=== PATIENT | female | born 1970 | race African-American/Black ===

== ENCOUNTER 2018-12-26 20:02 | Emergency (ER) | payer MEDICAID ==
[~2018-12-26] VITALS: Ht 160 cm; Wt 134.0 kg
[~2018-12-26 20:02] MED LIST: ALBUTEROL; CLARITIN
[2018-12-27 00:40] VITALS: BP 151/81
== END 2018-12-27 00:50 | disposition home or self-care (01) ==
LOC: ER 20:02
DX: T85.628A Displacement of other specified internal prosthetic devices, implants and grafts, initial encounter (principal); I10 Essential (primary) hypertension; F12.10 Cannabis abuse, uncomplicated; J44.9 Chronic obstructive pulmonary disease, unspecified; Z86.718 Personal history of other venous thrombosis and embolism; Z90.710 Acquired absence of both cervix and uterus; Z98.890 Other specified postprocedural states
CPT/HCPCS: 71045; 99283

== ENCOUNTER → 2019-10-13 | Outpatient (CLI) | payer MEDICARE, MEDICAID | END | disposition home or self-care (01) | LOC: RAD 16:16 | PROVIDERS: ATTEND Nurse Practitioner Family | DX: R05 Cough (principal) | CPT/HCPCS: 71045 ==

== ENCOUNTER 2021-10-04 13:32 | Emergency (ER) | payer MEDICARE, MEDICAID ==
[~2021-10-04] VITALS: Ht 160 cm; Wt 137.0 kg
[2021-10-04] MEDS ORDERED: SELE118S2 TP (14:52)
[2021-10-04] MEDS ORDERED: GRIS500T6 MT ×2 (14:52→15:55)
[2021-10-04 15:19] VITALS: BP 125/64
[2021-10-04] MEDS ORDERED: NIZOS TP (15:56)
== END 2021-10-04 15:20 | disposition home or self-care (01) ==
LOC: ER 14:41
DX: B35.0 Tinea barbae and tinea capitis (principal)
CPT/HCPCS: 99281

== ENCOUNTER 2022-07-17 15:31 | Inpatient (IN) | payer MEDICARE, MEDICAID ==
[~2022-07-17] VITALS: Ht 160 cm; Wt 130.5 kg
[~2022-07-17 15:31] MED LIST changes: +GRIS500T6 MT; +NIZOS TP; +SELE118S2 TP
[2022-07-17] MEDS ORDERED: ENOXAPARIN 80MG/0.8ML SYR SUBCUT ONE (16:15)
[2022-07-17 16:46] LABS: BASOPHILS % 0.3 % (0.0-2.0); EOSINOPHILS % 1.1 % (0.0-5.0); HEMATOCRIT. 29.2 % (36.0-48.0); HEMOGLOBIN. 9.1 g/dL (12.0-16.0); LYMPHOCYTES % 11.2 % (20.0-50.0); MEAN CORPUSCULAR HEMOGLOBIN 23.9 pg (28.0-32.0); MEAN CORPUSCULAR VOLUME 76.8 fL (81.0-99.0); MEAN PLATELET VOLUME 8.3 fl (7.4-10.4); MONOCYTES % 7.1 % (2.0-8.0); NEUTROPHILS % 80.3 % (40.0-76.0); PLATELET 366 x1000/uL (130-400); RED CELL DISTRIBUTION WIDTH 20.9 % (11.6-14.6)
[2022-07-17 16:55] LABS: CHLORIDE 103 mEq/L (98-107)
[2022-07-17 16:56] LABS: PARTIAL THROMBOPLASTIN TIME 30.5 sec (23.4-31.0)
[2022-07-17] MEDS ORDERED: ACETAMINOPHEN 650MG/20.3ML UDC PO ONE (18:45)
[2022-07-17] MEDS ORDERED: IOHEXOL-350 100 ML BOTTLE ONE (19:25)
[2022-07-17] MEDS ORDERED: ONDANSETRON HCL 4MG/2ML INJ IV PRN (19:45)
[2022-07-17] MEDS ORDERED: DIPHENHYDRAMINE 50MG/ML VIAL IV PRN (19:45)
[2022-07-17] MEDS ORDERED: MORPHINE SULFATE 2 MG/ML CPJ (NOT FOR IM USE) IV PRN (19:45)
[2022-07-17] MEDS ORDERED: IPRATROPIUM/ALBUTEROL 0.5-3(2.5)MG/3ML NEB HHN PRN (19:45)
[2022-07-17] MEDS: SODIUM CHLORIDE 0.9% 1,000 ML IV SCH (20:11)
[2022-07-17] MEDS ORDERED: AZITHROMYCIN 500 MG in DEXT 5% WATER 250 ML IV SCH (20:30)
[2022-07-17] MEDS ORDERED: CEFTRIAXONE 1 G PREMIX 50 ML IV SCH (22:00)
[2022-07-17] MEDS: CLONIDINE 0.1MG TABLET PO PRN (22:14)
[2022-07-18] MEDS: SODIUM CHLORIDE 0.9% 1,000 ML IV SCH (08:15)
[2022-07-18] MEDS: CLONIDINE 0.1MG TABLET PO PRN ×2 (10:35→17:02)
[2022-07-18] MEDS ORDERED: NALOXONE HCL 0.4MG/ML VIAL IV PRN (11:15)
[2022-07-18 12:00] VITALS: BP 158/89
[2022-07-18 12:55] VITALS: BP 158/89
[2022-07-18] MEDS ORDERED: AZITHROMYCIN 500 MG in DEXT 5% WATER 250 ML IV SCH ×2 (14:00→21:00)
[2022-07-18 14:10] LABS: BG BASE EXCESS 7.1 mmol/L (-2.0-2.0); BG CARBOXYHEMOGLOBIN 0.4 % (0.5-1.5); BG DEOXYHEMOGLOBIN 6.1 % (0.0-5.0); BG HCO3 ACT 35.2 mmol/L (22.0-26.0); BG METHEMOGLOBIN 0.2 % (0.0-1.5); BG OXYGEN SATURATION 93.9 % (92.0-98.5); BG OXYHEMOGLOBIN 93.3 % (94.0-97.0); BG PCO2 72.5 mmHg (35.0-45.0); BG PH 7.304 (7.350-7.450); BG PO2 75.1 mmHg (75.0-100.0); BG SAMPLE SITE RIGHT RADIAL; BG TOTAL HEMOGLOBIN 10.2 g/dL (12.0-18.0); BG VENT MODE NASAL CANNULA
[2022-07-18] MEDS: CEFTRIAXONE 1,000 MG in DEXTROSE 5% WATER 50 ML IV SCH (15:45)
[2022-07-18 16:00] VITALS: BP 160/100
[2022-07-18 16:52] LABS: CHLORIDE 102 mEq/L (98-107)
[2022-07-18 17:00] LABS: TOTAL IRON BINDING CAPACITY 260 ug/dL (250-450)
[2022-07-18] MEDS: AZITHROMYCIN 500 MG in DEXT 5% WATER 250 ML IV SCH (17:02)
[2022-07-18] MEDS: METHYLPREDNISOLONE SOD SUCC 40 MG/ML VIAL IV SCH (17:07)
[2022-07-18 17:22] LABS: BASOPHILS % 0.2 % (0.0-2.0); EOSINOPHILS % 0.8 % (0.0-5.0); HEMATOCRIT. 30.8 % (36.0-48.0); HEMOGLOBIN. 9.3 g/dL (12.0-16.0); LYMPHOCYTES % 11.3 % (20.0-50.0); MEAN CORPUSCULAR HEMOGLOBIN 23.5 pg (28.0-32.0); MEAN CORPUSCULAR VOLUME 77.6 fL (81.0-99.0); MEAN PLATELET VOLUME 8.8 fl (7.4-10.4); MONOCYTES % 5.9 % (2.0-8.0); NEUTROPHILS % 81.8 % (40.0-76.0); PLATELET 339 x1000/uL (130-400); RED BLOOD CELL COUNT 3.97 mill/uL (4.2-5.4); RED CELL DISTRIBUTION WIDTH 21.8 % (11.6-14.6)
[2022-07-18 18:59] VITALS: BP 151/104
[2022-07-18] MEDS: AMLODIPINE 5MG TABLET PO SCH (18:59)
[2022-07-18 20:00] VITALS: BP 149/85
[2022-07-18] MEDS: IPRATROPIUM/ALBUTEROL 0.5-3(2.5)MG/3ML NEB HHN SCH (21:58)
[2022-07-18] MEDS ORDERED: CEFTRIAXONE 1,000 MG in DEXTROSE 5% WATER 50 ML IV SCH (22:00)
[2022-07-19] VITALS: BP 137/91
[2022-07-19] MEDS: METHYLPREDNISOLONE SOD SUCC 40 MG/ML VIAL IV SCH ×3 (01:48→17:30)
[2022-07-19] MEDS: IPRATROPIUM/ALBUTEROL 0.5-3(2.5)MG/3ML NEB HHN SCH ×5 (02:55→20:42)
[2022-07-19 04:00] VITALS: BP 159/83
[2022-07-19 08:00] VITALS: BP 162/96
[2022-07-19] MEDS: AMLODIPINE 5MG TABLET PO SCH (09:03)
[2022-07-19] MEDS: SODIUM CHLORIDE 0.9% 1,000 ML IV SCH (09:07)
[2022-07-19] MEDS: CLONIDINE 0.1MG TABLET PO PRN (09:17)
[2022-07-19] MEDS: ACETAMINOPHEN 325MG TABLET PO PRN ×2 (09:17→20:01)
[2022-07-19 12:00] VITALS: BP 140/91
[2022-07-19] MEDS: CEFTRIAXONE 1,000 MG in DEXTROSE 5% WATER 50 ML IV SCH (12:06)
[2022-07-19] MEDS: AZITHROMYCIN 500 MG in DEXT 5% WATER 250 ML IV SCH (14:33)
[2022-07-19 16:00] VITALS: BP 151/100
[2022-07-19 20:00] VITALS: BP 148/80
[2022-07-20] VITALS: BP 137/84
[2022-07-20] MEDS: IPRATROPIUM/ALBUTEROL 0.5-3(2.5)MG/3ML NEB HHN SCH ×6 (00:10→22:21)
[2022-07-20] MEDS: METHYLPREDNISOLONE SOD SUCC 40 MG/ML VIAL IV SCH ×3 (00:24→18:00)
[2022-07-20] MEDS: SODIUM CHLORIDE 0.9% 1,000 ML IV SCH ×2 (00:25→10:07)
[2022-07-20 04:00] VITALS: BP 140/97
[2022-07-20 07:37] LABS: HEMATOCRIT. 32.2 % (36.0-48.0); HEMOGLOBIN. 9.9 g/dL (12.0-16.0); MEAN CORPUSCULAR HEMOGLOBIN 23.5 pg (28.0-32.0); MEAN CORPUSCULAR VOLUME 76.7 fL (81.0-99.0); MEAN PLATELET VOLUME 8.9 fl (7.4-10.4); PLATELET 403 x1000/uL (130-400); RED BLOOD CELL COUNT 4.19 mill/uL (4.2-5.4); RED CELL DISTRIBUTION WIDTH 21.1 % (11.6-14.6)
[2022-07-20 08:01] LABS: CHLORIDE 98 mEq/L (98-107)
[2022-07-20 08:30] VITALS: BP 165/100
[2022-07-20] MEDS: AMLODIPINE 5MG TABLET PO SCH (09:54)
[2022-07-20] MEDS: ACETAMINOPHEN 325MG TABLET PO PRN (10:41)
[2022-07-20] MEDS: GUAIFENESIN 600MG ER TABLET PO SCH ×2 (11:40→21:16)
[2022-07-20 12:00] VITALS: BP 157/94
[2022-07-20] MEDS: CEFTRIAXONE 1,000 MG in DEXTROSE 5% WATER 50 ML IV SCH (12:49)
[2022-07-20] MEDS: AZITHROMYCIN 500 MG in DEXT 5% WATER 250 ML IV SCH (14:23)
[2022-07-20 14:52] LABS: NUCLEATED RED BLOOD CELLS 1 /100 WBC; PLATELET ESTIMATE NORMAL
[2022-07-20 16:00] VITALS: BP 129/94
[2022-07-20] MEDS: IRON SUCROSE COMPLEX 100 MG/5 ML ML IV SCH (18:27)
[2022-07-20 20:00] VITALS: BP 121/73
[2022-07-21] VITALS: BP 118/78
[2022-07-21] MEDS: METHYLPREDNISOLONE SOD SUCC 40 MG/ML VIAL IV SCH ×4 (01:13→17:16)
[2022-07-21] MEDS: BENZONATATE 100MG CAPSULE PO PRN (01:15)
[2022-07-21] MEDS: SODIUM CHLORIDE 0.9% 1,000 ML IV SCH ×2 (01:15→11:58)
[2022-07-21] MEDS: IPRATROPIUM/ALBUTEROL 0.5-3(2.5)MG/3ML NEB HHN SCH ×6 (02:39→21:57)
[2022-07-21 04:00] VITALS: BP 158/92
[2022-07-21 08:00] VITALS: BP 168/100
[2022-07-21 08:03] LABS: BG BASE EXCESS 11.9 mmol/L (-2.0-2.0); BG CARBOXYHEMOGLOBIN 0.6 % (0.5-1.5); BG DEOXYHEMOGLOBIN 3.4 % (0.0-5.0); BG HCO3 ACT 39.5 mmol/L (22.0-26.0); BG METHEMOGLOBIN 0.3 % (0.0-1.5); BG OXYGEN SATURATION 96.6 % (92.0-98.5); BG OXYHEMOGLOBIN 95.7 % (94.0-97.0); BG PCO2 70.3 mmHg (35.0-45.0); BG PH 7.368 (7.350-7.450); BG PO2 88.9 mmHg (75.0-100.0); BG SAMPLE SITE RIGHT RADIAL; BG TOTAL HEMOGLOBIN 10.8 g/dL (12.0-18.0); BG VENT MODE NASAL CANNULA
[2022-07-21] MEDS: ACETAMINOPHEN 325MG TABLET PO PRN (08:38)
[2022-07-21] MEDS: AMLODIPINE 5MG TABLET PO SCH (08:39)
[2022-07-21] MEDS: GUAIFENESIN 600MG ER TABLET PO SCH ×2 (08:39→21:18)
[2022-07-21 12:00] VITALS: BP 158/68
[2022-07-21] MEDS: CEFTRIAXONE 1,000 MG in DEXTROSE 5% WATER 50 ML IV SCH (13:07)
[2022-07-21] MEDS: AZITHROMYCIN 500 MG in DEXT 5% WATER 250 ML IV SCH (13:07)
[2022-07-21 16:00] VITALS: BP 146/97
[2022-07-21] MEDS: IRON SUCROSE COMPLEX 100 MG/5 ML ML IV SCH ×3 (17:16→19:21)
[2022-07-21 20:00] VITALS: BP 125/76
[2022-07-22] VITALS (7 sets, daily range): BP systolic 122–157; BP diastolic 81–106
[2022-07-22] MEDS: METHYLPREDNISOLONE SOD SUCC 40 MG/ML VIAL IV SCH ×3 (00:21→17:21)
[2022-07-22] MEDS: SODIUM CHLORIDE 0.9% 1,000 ML IV SCH ×2 (00:21→14:25)
[2022-07-22] MEDS: IPRATROPIUM/ALBUTEROL 0.5-3(2.5)MG/3ML NEB HHN SCH ×6 (00:22→21:03)
[2022-07-22] MEDS: CLONIDINE 0.1MG TABLET PO PRN (00:29)
[2022-07-22] MEDS: BENZONATATE 100MG CAPSULE PO PRN (00:31)
[2022-07-22] MEDS: ACETAMINOPHEN 325MG TABLET PO PRN ×2 (01:29→09:09)
[2022-07-22] MEDS: AMLODIPINE 5MG TABLET PO SCH (09:09)
[2022-07-22] MEDS: GUAIFENESIN 600MG ER TABLET PO SCH ×2 (09:09→21:42)
[2022-07-22] MEDS: CEFTRIAXONE 1,000 MG in DEXTROSE 5% WATER 50 ML IV SCH (14:25)
[2022-07-22] MEDS: BACLOFEN 10MG TABLET PO SCH (23:35)
[2022-07-23] VITALS (7 sets, daily range): BP systolic 136–157; BP diastolic 73–109
[2022-07-23] MEDS: IPRATROPIUM/ALBUTEROL 0.5-3(2.5)MG/3ML NEB HHN SCH ×6 (00:36→20:48)
[2022-07-23] MEDS: METHYLPREDNISOLONE SOD SUCC 40 MG/ML VIAL IV SCH ×3 (01:27→17:57)
[2022-07-23] MEDS: SODIUM CHLORIDE 0.9% 1,000 ML IV SCH ×2 (01:32→12:57)
[2022-07-23] MEDS: BACLOFEN 10MG TABLET PO SCH ×3 (06:30→21:55)
[2022-07-23 07:21] LABS: HEMATOCRIT. 32.8 % (36.0-48.0); MEAN CORPUSCULAR HEMOGLOBIN 23.5 pg (28.0-32.0); MEAN CORPUSCULAR VOLUME 77.2 fL (81.0-99.0); MEAN PLATELET VOLUME 8.9 fl (7.4-10.4); PLATELET 345 x1000/uL (130-400); RED BLOOD CELL COUNT 4.25 mill/uL (4.2-5.4); RED CELL DISTRIBUTION WIDTH 20.8 % (11.6-14.6)
[2022-07-23 07:37] LABS: CHLORIDE 98 mEq/L (98-107)
[2022-07-23] MEDS: AMLODIPINE 5MG TABLET PO SCH (09:36)
[2022-07-23] MEDS: GUAIFENESIN 600MG ER TABLET PO SCH ×2 (09:36→21:55)
[2022-07-23 11:15] LABS: BG BASE EXCESS 15.3 mmol/L (-2.0-2.0); BG CARBOXYHEMOGLOBIN 0.6 % (0.5-1.5); BG DEOXYHEMOGLOBIN 11.3 % (0.0-5.0); BG FRACTION INSPIRED OXYGEN 21; BG HCO3 ACT 41.9 mmol/L (22.0-26.0); BG METHEMOGLOBIN 0.2 % (0.0-1.5); BG OXYGEN SATURATION 88.6 % (92.0-98.5); BG OXYHEMOGLOBIN 87.9 % (94.0-97.0); BG PCO2 62.2 mmHg (35.0-45.0); BG PH 7.446 (7.350-7.450); BG PO2 53.1 mmHg (75.0-100.0); BG SAMPLE SITE RIGHT RADIAL; BG TOTAL HEMOGLOBIN 11.1 g/dL (12.0-18.0); BG VENT MODE ROOM AIR
[2022-07-23] MEDS: CEFTRIAXONE 1,000 MG in DEXTROSE 5% WATER 50 ML IV SCH (12:57)
[2022-07-23] MEDS: CLONIDINE 0.1MG TABLET PO PRN (12:58)
[2022-07-23] MEDS ORDERED: ACETAZOLAMIDE 250MG TABLET PO NR (14:00)
[2022-07-23 19:12] LABS: PLATELET ESTIMATE NORMAL
[2022-07-24] VITALS: BP 152/86
[2022-07-24] MEDS: IPRATROPIUM/ALBUTEROL 0.5-3(2.5)MG/3ML NEB HHN SCH ×4 (00:38→12:38)
[2022-07-24] MEDS: SODIUM CHLORIDE 0.9% 1,000 ML IV SCH (01:17)
[2022-07-24] MEDS: METHYLPREDNISOLONE SOD SUCC 40 MG/ML VIAL IV SCH ×2 (01:17→08:54)
[2022-07-24 04:00] VITALS: BP 138/84
[2022-07-24] MEDS: BACLOFEN 10MG TABLET PO SCH ×3 (06:40→21:06)
[2022-07-24 08:00] VITALS: BP 183/105
[2022-07-24] MEDS: AMLODIPINE 5MG TABLET PO SCH (08:53)
[2022-07-24] MEDS: GUAIFENESIN 600MG ER TABLET PO SCH ×2 (08:53→21:06)
[2022-07-24] MEDS: CLONIDINE 0.1MG TABLET PO PRN ×2 (08:54→17:58)
[2022-07-24 12:00] VITALS: BP 170/109
[2022-07-24] MEDS ORDERED: AMLODIPINE 5MG TABLET PO NR (12:45)
[2022-07-24] MEDS: LOSARTAN POTASSIUM 25 MG TABLET PO SCH (13:05)
[2022-07-24 16:00] VITALS: BP 143/98
[2022-07-24 20:00] VITALS: BP 150/87
[2022-07-25] VITALS: BP 126/72
[2022-07-25] MEDS: ACETAMINOPHEN 325MG TABLET PO PRN (01:26)
[2022-07-25 04:00] VITALS: BP 129/76
[2022-07-25] MEDS: BACLOFEN 10MG TABLET PO SCH ×2 (05:55→13:06)
[2022-07-25] MEDS ORDERED: PREDNISONE 20MG TABLET PO SCH (07:10)
[2022-07-25 08:00] VITALS: BP 134/85
[2022-07-25] MEDS: LOSARTAN POTASSIUM 25 MG TABLET PO SCH (08:39)
[2022-07-25] MEDS: GUAIFENESIN 600MG ER TABLET PO SCH (08:39)
[2022-07-25] MEDS ORDERED: AMLODIPINE 10MG TABLET PO SCH (09:00)
[2022-07-25] MEDS: IPRATROPIUM/ALBUTEROL 0.5-3(2.5)MG/3ML NEB HHN SCH ×2 (09:26→12:36)
[2022-07-25 12:00] VITALS: BP 152/97
[2022-07-25 12:09] VITALS: BP_SYST 109; BP_SYST 152; BP_DIAS 54; BP_DIAS 97
[2022-07-25] MEDS: CLONIDINE 0.1MG TABLET PO PRN (12:55)
[2022-07-25] MEDS ORDERED: P20 MT (15:24)
[2022-07-25] MEDS ORDERED: FAMO20TA8 MT (15:24)
[2022-07-25] MEDS ORDERED: LOSA25TA3 PO (15:24)
[2022-07-25] MEDS ORDERED: AMLO10TA80 PO (15:24)
[2022-07-25 16:00] VITALS: BP 109/54
== END 2022-07-25 16:50 | disposition home health service (06) | DRG 871 ==
LOC: ER 15:31 → 7EST 18:29 → EDBEDREQ 18:39 → EDBEDREQTM 18:39 → ENRESERV 07-18 07:50 → MICUSO 07-18 11:08 → 7EST 07-18 12:30
PROVIDERS: ADMIT Family Medicine Adult Medicine; ATTEND Family Medicine Adult Medicine
DX: A41.9 Sepsis, unspecified organism (principal); J18.9 Pneumonia, unspecified organism; J96.01 Acute respiratory failure with hypoxia; J44.0 Chronic obstructive pulmonary disease with (acute) lower respiratory infection; Z68.43 Body mass index [BMI] 50.0-59.9, adult; E66.9 Obesity, unspecified; E86.0 Dehydration; D53.9 Nutritional anemia, unspecified; I10 Essential (primary) hypertension; Z86.718 Personal history of other venous thrombosis and embolism; Z85.3 Personal history of malignant neoplasm of breast; Z90.710 Acquired absence of both cervix and uterus; Z90.12 Acquired absence of left breast and nipple
CPT/HCPCS: 36415; 36600; 71045; 71275; 80048; 80053; 82375; 82805; 83540; 83550; 83880; 84484; 85025; 87426; 87804; 93005; 93970; 94640; 99285; C1893; J0456; J0696; J1650; J2920; J7060; J7512; Q9967